=== PATIENT | female | born 1990 | race Caucasian/White ===

== ENCOUNTER → 2020-08-12 15:44 | Outpatient (CLI) | payer OTHER, BC, SELFPAY ==
--- NOTE | 2020-08-12 15:48 | DI.US.S_ITS ---
PROCEDURE: US OB >= 14 WEEKS FETUS INDICATIONS: 20 week anatomy scan OUTSIDE/PRIOR DATING DATA: Last menstrual period (LMP): 03/20/20 . LMP-based estimated date of delivery (RIAZ): 12/25/20 . First dating scan (date and location): 08/12/20, current study . Estimated date of delivery (RIAZ) from first dating scan: 12/18/20 . TECHNIQUE: Real-time scanning was performed of the fetus, with image documentation and biometric measurements. Endovaginal scanning: Not performed COMPARISON: [facility], , OB >= 14 WEEKS FETUS, 07/31/2020, 16:40. FINDINGS: General: A single living intrauterine gestation is present. Presentation: Vertex. Placenta: Placental position is posterior , without previa. Amniotic fluid index: 14.6 cm, normal range is 5-24 cm. heart rate: 144 beats per minute. Maternal cervical canal: 4.1 cm long. Normal lower limit is 2.5 cm. biometrics: Biparietal diameter: 5.1 cm, 21 weeks, three days Head circumference: 19.0 cm, 21 weeks, two days Abdominal circumference: 16.3 cm, 21 weeks, two days Femur length: 4.0 cm, 22 weeks, six days Estimated gestational age from initial scan: 20 weeks, five days. Composite gestational age from present scan: 21 weeks, five days Estimated weight and percentile: 460 g, 95th percentile Measurement variability for biometric dating: +/- 7 days from 14 weeks to 15 weeks 6 days gestation, +/- 10 days from 16 weeks to 21 weeks 6 days gestation, +/- 2 weeks from 22 weeks to 27 weeks 6 days gestation, +/- 3 weeks for 28 weeks gestation or later. weight reference: 4500 g or EFW >90/95% is considered macrosomia or large for gestational age. EFW <10% is small for gestational age. EFW 5% or less is considered intra-uterine growth restriction. Anatomic survey: Neuro: Ventricles are non-dilated at less than 10 mm. Cisterna magna is normal at 3-11 mm. Cerebellum is normal in size and morphology. Nuchal skin fold: Normal at less than 6 mm between 14-21 weeks gestational age. Face: Nose and lips, facial profile are normal. Spine: No evidence for spina bifida. Heart: 4-chambered heart is present, with normal ventricular outflow tracts. Diaphragm: Diaphragm is intact. Stomach: Left-sided stomach is present. Kidneys: No hydronephrosis. Normal is less than 5 mm in 2nd trimester, less than 7 mm in 3rd trimester. Cord: 3-vessel cord has orthotopic insertion. Bladder: Normal in size. Extremities: All 4 extremities identified. IMPRESSION: 1. Single live intrauterine with a gestational age seven days ahead of the clinically assigned gestational age. 2. Symmetric growth and normal anatomy. 3. Estimated weight at the 95th percentile. Consider follow-up to evaluate for macrosomia. Dictated by: Comfort Youssef M.D. on 08/13/2020 at 10:12 Approved by: Comfort Youssef M.D. on 08/13/2020 at 10:20
[2020-08-14 20:46] LABS: AFP Value 79.2 ng/mL (.); Gest Age on Col Date 20.7 weeks (.); Insulin Dep Diabetes No (.); OSBR Risk 1IN 7603 (.); Results Report (.); Test Results *Screen Negative* (.)
== END ==
PROVIDERS: Referring Provider Specialist; Visit Provider Specialist
DX: Z34.02 Encounter for supervision of normal first pregnancy, second trimester (principal); Z3A.20 20 weeks gestation of pregnancy
CPT/HCPCS: 36415; 76811; 82105

== ENCOUNTER → 2020-09-05 08:24 | Outpatient (CLI) | payer OTHER, BC, SELFPAY ==
[2020-09-05 10:12] LABS: Hematocrit 33.4 % (36-46); Hemoglobin 11.5 g/dL (12.0-16.0)
[2020-09-05 10:37] LABS: GTT (PREG) 1 Hour PP 50gm Dose 123 mg/dL (76-139)
== END ==
PROVIDERS: Referring Provider Specialist; Visit Provider Specialist
DX: Z34.02 Encounter for supervision of normal first pregnancy, second trimester (principal); Z3A.25 25 weeks gestation of pregnancy
CPT/HCPCS: 36415; 82950; 85014; 85018

== ENCOUNTER 2020-10-27 11:55 | Outpatient (CLI) | payer OTHER, BC, SELFPAY ==
--- NOTE | 2020-10-27 17:28 | P.TNLD_ITS ---
Visit Information Visit Information Date of evaluation: 10/27/20 Primary OB Provider: Katlin Palacios Reason for Evaluation: Yes non-stress test Comments/Additional reasons for admission: Patient is a 30-year-old pr esenting for evaluation of intermittent contractions. Otherwise uncomplicated . Vital Signs Vital Signs: 123/63 PFSH Medical History Genital herpes (~2016) PCOS (polycystic ovarian syndrome) (~01/2020) Sinus infection Surgical History [place] teeth extracted Family History Mother BRCA gene mutation positive Father Hypertension Obesity Grandmother Diabetes mellitus Stroke Breast cancer Grandfather Alcoholic Grandmother Stroke Hypertension Cancer Grandfather Cancer Hypertension Social History marital status: number of children: 0 household members: spouse lives independently: Yes caregiver/support person: No housing: house pets and animals: Yes (1 dog. (safe around babies)) education level: college occupational status: employed current occupational exposures/hazards: No christel/mosque: None special christel needs: No seatbelt use: always Smoking Status: Former smoker Tobacco: How many years used: 2 quit status: has quit before second hand exposure: No alcohol intake: former substance use type: does not use during the past year weight has: remained stable well-balanced diet: daily or most days daily servings fruits/ve-4 caffeine: Yes (currently has aversion.) Type(s) of exercise: normal ROM and activity and additional frequency: 3-4 times per week Evaluation Evaluation Baseline heart rate: 130 Variability: Moderate (11-25) monitor accelerations: Present Monitor Decelerations: Absent Category of Tracing: Reactive Status: Category l Comments: Uterine irritability, neither symptomatic more palpable. Improved with voiding and p.o. hydration. Diagnosis, Plan/Disposition Plan/Disposition Plan: Home with routine precautions. OB Disposition: home
== END 2020-10-27 13:15 | disposition home or self-care (01) ==
LOC: OB 10-28 07:38
PROVIDERS: PCP Obstetrics & Gynecology; Referring Provider Obstetrics & Gynecology; Visit Provider Obstetrics & Gynecology
DX: O47.03 False labor before 37 completed weeks of gestation, third trimester (principal); Z3A.31 31 weeks gestation of pregnancy
CPT/HCPCS: 59025; G0378; G0379

== ENCOUNTER → 2020-12-01 16:13 | Outpatient (CLI) | payer OTHER, BC, SELFPAY ==
[2020-12-02 12:21] LABS: Strep Grp B PCR NEG for Grp B Strep
== END ==
PROVIDERS: PCP Obstetrics & Gynecology; Visit Provider Obstetrics & Gynecology
DX: Z34.03 Encounter for supervision of normal first pregnancy, third trimester (principal); Z3A.36 36 weeks gestation of pregnancy
CPT/HCPCS: 87653

== ENCOUNTER 2020-12-07 13:34 | Outpatient (CLI) | payer OTHER, BC, SELFPAY ==
--- NOTE | 2020-12-07 14:47 | PM.OBTRLD ---
Visit Information Visit Information Date of evaluation: 12/07/20 Primary OB Provider: Katlin Palacios Reason for Evaluation: Yes non-stress test Comments/Additional reasons for admission: Patient is a @37+3 presenting for NST for several days of decreased movement, though stable at this new baseline. Otherwise low risk . Vital Signs Vital Signs: 120/78, HR 88 PFSH Medical History Genital herpes (~2016) PCOS (polycystic ovarian syndrome) (~01/2020) Sinus infection Surgical History [place] teeth extracted Family History Mother BRCA gene mutation positive Father Hypertension Obesity Grandmother Diabetes mellitus Stroke Breast cancer Grandfather Alcoholic Grandmother Stroke Hypertension Cancer Grandfather Cancer Hypertension Social History marital status: number of children: 0 household members: spouse lives independently: Yes caregiver/support person: No housing: house pets and animals: Yes (1 dog. (safe around babies)) education level: college occupational status: employed current occupational exposures/hazards: No christel/nondenominational: None special christel needs: No seatbelt use: always Smoking Status: Former smoker Tobacco: How many years used: 2 quit status: has quit before second hand exposure: No alcohol intake: former substance use type: does not use during the past year weight has: remained stable well-balanced diet: daily or most days daily servings fruits/ve-4 caffeine: Yes (currently has aversion.) Type(s) of exercise: normal ROM and activity and additional frequency: 3-4 times per week Review of Systems Constitutional Constitutional: Reports system reviewed and no additional complaints, except as documented Evaluation Evaluation Baseline heart rate: 120 Variability: Moderate (11-25) monitor accelerations: Present Monitor Decelerations: Absent Contraction Frequency (minutes): 3 Category of Tracing: Reactive Status: Category l Cervical dilation (cm): 0 Cervical effacement (%): 50 station: -4 Diagnosis, Plan/Disposition Plan/Disposition Plan: Home with routine precautions and scheduled follow up. OB Disposition: home
== END 2020-12-07 14:35 | disposition home or self-care (01) ==
LOC: LABOR 14:00 → OB 12-09 10:01
PROVIDERS: PCP Obstetrics & Gynecology; Referring Provider Obstetrics & Gynecology; Visit Provider Obstetrics & Gynecology
DX: O36.8130 Decreased fetal movements, third trimester, not applicable or unspecified (principal); O99.283 Endocrine, nutritional and metabolic diseases complicating pregnancy, third trimester; E28.2 Polycystic ovarian syndrome; Z3A.37 37 weeks gestation of pregnancy
CPT/HCPCS: 59025; G0378; G0379

== ENCOUNTER 2020-12-14 18:57 | Outpatient (CLI) | payer OTHER, BC, SELFPAY ==
[2020-12-14] MEDS: METOCLOPRAMIDE HCL 10 MG TABLET PO (19:56)
[2020-12-14 20:09] LABS: Add Manual Diff / Slide Review NO; Basophils Absolute Auto 100 /uL (0-100); Basophils Percent Auto 0.5 % (0-2); Eosinophils Absolute Auto 100 /uL (0-450); Eosinophils Percent Auto 0.7 % (2-4); Hemoglobin 9.3 g/dL (12.0-16.0); Lymphocytes Absolute Auto 2700 /uL (1100-4500); Lymphocytes Percent Auto 20.2 % (25-40); Mean Corpuscular Hemoglobin 22.8 PG (26-34); Mean Corpuscular Volume 71.1 fL (80-100); Monocytes Absolute Auto 1300 /uL (0-900); Monocytes Percent Auto 10.1 % (3-14); Neutrophils Absolute Auto 9000 /uL (1500-7000); Neutrophils Percent Auto 68.5 % (50-75); Platelet Count 297 X10^3/uL (150-400); Red Blood Cell Count 4.08 X10^6/uL (4.0-5.2); Red Cell Distribution Width 16.7 % (11.6-14.8); White Blood Cell Count 13.2 X10^3/uL (4.5-11.0)
[2020-12-14 20:19] LABS: Creatinine Urine Random 16.2 mg/dL; Protein (Total) Urine Random 13 mg/dL (0-12)
[2020-12-14 20:20] LABS: Aspartate Aminotransferase 23 IU/L (14-36); Blood Urea Nitrogen 8 mg/dL (7-17); Estimated Glomerular Filt Rate > 60.0 mL/min (>60); Uric Acid 3.3 mg/dL (2.5-6.2)
== END 2020-12-14 21:15 | disposition home or self-care (01) ==
LOC: LABOR 19:16 → OB 12-16 15:07
PROVIDERS: PCP Obstetrics & Gynecology; Referring Provider Obstetrics & Gynecology; Visit Provider Obstetrics & Gynecology
DX: O46.93 Antepartum hemorrhage, unspecified, third trimester (principal); O99.283 Endocrine, nutritional and metabolic diseases complicating pregnancy, third trimester; O26.893 Other specified pregnancy related conditions, third trimester; E28.2 Polycystic ovarian syndrome; R51.9 Headache, unspecified; Z3A.38 38 weeks gestation of pregnancy
CPT/HCPCS: 36415; 59025; 82570; 84156; 84450; 84550; 85025; G0378; G0379

== ENCOUNTER → 2020-12-21 09:41 | Outpatient (CLI) | payer OTHER, BC, SELFPAY ==
[2020-12-21 10:23] LABS: Add Manual Diff / Slide Review NO; Basophils Absolute Auto 100 /uL (0-100); Basophils Percent Auto 0.5 % (0-2); Eosinophils Absolute Auto 100 /uL (0-450); Eosinophils Percent Auto 0.6 % (2-4); Hematocrit 29.4 % (36-46); Hemoglobin 9.2 g/dL (12.0-16.0); Lymphocytes Absolute Auto 2200 /uL (1100-4500); Lymphocytes Percent Auto 16.7 % (25-40); Mean Corpuscular HGB Conc 31.3 % (30-36); Mean Corpuscular Hemoglobin 22.1 PG (26-34); Mean Corpuscular Volume 70.6 fL (80-100); Monocytes Absolute Auto 1100 /uL (0-900); Monocytes Percent Auto 8.6 % (3-14); Neutrophils Absolute Auto 9700 /uL (1500-7000); Neutrophils Percent Auto 73.6 % (50-75); Platelet Count 307 X10^3/uL (150-400); Red Blood Cell Count 4.17 X10^6/uL (4.0-5.2); Red Cell Distribution Width 17.1 % (11.6-14.8); White Blood Cell Count 13.2 X10^3/uL (4.5-11.0)
[2020-12-21 11:01] LABS: Aspartate Aminotransferase 26 IU/L (14-36); BUN Creatinine Ratio 23.4 (6-22); Blood Urea Nitrogen 11 mg/dL (7-17); Estimated Glomerular Filt Rate > 60.0 mL/min (>60); Uric Acid 3.9 mg/dL (2.5-6.2)
[2020-12-21 11:13] LABS: Creatinine Urine Random 196.5 mg/dL
[2020-12-21 11:20] LABS: Protein (Total) Urine Random < 5 mg/dL (0-12); Protein Creatinine Ratio Urine 0.02 GRAM/24H
== END ==
PROVIDERS: PCP Obstetrics & Gynecology; Referring Provider Obstetrics & Gynecology; Visit Provider Obstetrics & Gynecology
DX: Z34.90 Encounter for supervision of normal pregnancy, unspecified, unspecified trimester (principal)
CPT/HCPCS: 36415; 82570; 84156; 84450; 84550; 85025

== ENCOUNTER 2020-12-23 19:44 | Inpatient (IN) | payer OTHER, BC, SELFPAY ==
[2020-12-23 21:22] LABS: Add Manual Diff / Slide Review NO; Basophils Absolute Auto 100 /uL (0-100); Basophils Percent Auto 0.7 % (0-2); Eosinophils Absolute Auto 100 /uL (0-450); Eosinophils Percent Auto 0.9 % (2-4); Hematocrit 32.5 % (36-46); Lymphocytes Absolute Auto 2600 /uL (1100-4500); Lymphocytes Percent Auto 19.3 % (25-40); Mean Corpuscular HGB Conc 30.9 % (30-36); Mean Corpuscular Hemoglobin 21.6 PG (26-34); Monocytes Absolute Auto 1200 /uL (0-900); Monocytes Percent Auto 8.9 % (3-14); Neutrophils Absolute Auto 9500 /uL (1500-7000); Neutrophils Percent Auto 70.2 % (50-75); Platelet Count 360 X10^3/uL (150-400); Red Blood Cell Count 4.64 X10^6/uL (4.0-5.2); Red Cell Distribution Width 17.3 % (11.6-14.8); White Blood Cell Count 13.5 X10^3/uL (4.5-11.0)
[2020-12-23] MEDS: DINOPROSTONE VAG (CERVIDIL) 10 MG VAG (21:30)
[2020-12-23 21:46] VITALS: BP 119/80
[2020-12-23] MEDS: ZOLPIDEM 5 MG TABLET PO (22:06)
[2020-12-23 22:20] LABS: COVID19 - ADMIT (NP swab/PCR) Negative (Negative)
--- NOTE | 2020-12-24 08:29 | PM.OBHP.1 ---
OB HPI Date/Time Date of admission: 12/24/20 Date Patient Seen: 12/24/20 Time Patient Seen: 07:50 History of Present Condition Chief complaint: : 1 Para: 0 Estimated Date of Delivery: 12/24/20 Estimated Gestational Age (weeks): 40 Narrative: Lisa Tse is a 30 year old female @39+6 presenting for elective induction of labor. The patient reports feeling well this AM, with intermittent cramping but no other symptoms or concerns obstetrical or otherwise. The patient's was complicated by multiple transfers of care, and she has a history of genital herpes with no signs or symptoms of current outbreak and has been on Valtrex since 36 weeks. She has a history of metformin 500mg BID use as part of PCOS/infertility treatment, but no other significant continuous improvement director, medical, surgical, family, or social history. Indications Indication for induction OB: other (elective/upcoming non-elective partner surgery) History of Present care: good care and initiated at week # (5) Dating criteria: LMP confirmed by 1st trimester US Ultrasounds: normal mid trimester US Obstetrical complications: none Medical complications: none Preadmission Labs Blood type: O (+) positive -: Antibody screen: negative, GBS status: negative, HBsAG: negative, HIV: negative, HSV 2: positive and RPR/VDLR: negative -: Chlamydia screen: not detected and Gonorrhea screen: not detected -: Rubella: not immune and Varicella: immune Cell-free DNA: low risk, male 1 hr GTT: 123 Evaluation Evaluation Baseline heart rate: 125 Variability: Moderate (11-25) monitor accelerations: Present Monitor Decelerations: Absent Contraction Frequency (minutes): 3 Uterine Contraction Intensity: Moderate Category of Tracing: Reactive Status: Category l Cervical dilation (cm): 2 Cervical effacement (%): 75 station: -2 Laboratory results: Laboratory Tests 12/23/20 12/23/20 12/23/20 21:00 21:00 21:00 WBC 13.5 H RBC 4.64 Hgb 10.0 L Hct 32.5 L MCV 70.0 L MCH 21.6 L MCHC 30.9 RDW 17.3 H Plt Count 360 Neut % (Auto) 70.2 Lymph % (Auto) 19.3 L [place] % (Auto) 8.9 Eos % (Auto) 0.9 L Baso % (Auto) 0.7 Neut # (Auto) 9500 H Lymph # (Auto) 2600 [place] # (Auto) 1200 H Eos # (Auto) 100 Baso # (Auto) 100 SARS-CoV-2 (PCR) Negative Blood Type O Positive Antibody Screen Negative PFSH Medical History Genital herpes (~2016) PCOS (polycystic ovarian syndrome) (~01/2020) Sinus infection Surgical History [place] teeth extracted Family History Mother BRCA gene mutation positive Father Hypertension Obesity Grandmother Diabetes mellitus Stroke Breast cancer Grandfather Alcoholic Grandmother Stroke Hypertension Cancer Grandfather Cancer Hypertension Social History marital status: number of children: 0 household members: spouse lives independently: Yes caregiver/support person: No housing: house pets and animals: Yes (1 dog. (safe around babies)) education level: college occupational status: employed current occupational exposures/hazards: No christel/hinduism: None special christel needs: No seatbelt use: always Smoking Status: Never smoker Tobacco: How many years used: 2 quit status: has quit before second hand exposure: No alcohol intake: former substance use type: does not use during the past year weight has: remained stable well-balanced diet: daily or most days daily servings fruits/ve-4 caffeine: Yes (currently has aversion.) Type(s) of exercise: normal ROM and activity and additional frequency: 3-4 times per week Meds Home Medications and Allergies Home Medications Medication Instructions Recorded Confirmed Type prenat.vits,miriam,[id number] 1 tab PO DAILY 06/26/20 12/23/20 History metformin 500 mg tablet,extended 500 mg PO BID #60 tab 08/13/20 12/23/20 Rx release 24 hr Double Electric Breast Pump #1 ea 10/27/20 12/24/20 Rx valacyclovir 500 mg tablet 500 mg PO DAILY #30 tab 11/24/20 12/23/20 Rx (Valtrex) Allergies Allergy/AdvReac Type Severity Reaction Status Date / Time nickel AdvReac Intermediate Verified 06/26/20 10:11 Review of Systems Constitutional Constitutional: Reports system reviewed and no additional complaints, except as documented Cardiovascular Cardiovascular: Reports system reviewed and no additional complaints, except as documented Respiratory Respiratory: Reports system reviewed and no additional complaints, except as documented Gastrointestinal Gastrointestinal: Reports system reviewed and no additional complaints, except as documented Genitourinary Genitourinary: Reports as per HPI Musculoskeletal Musculoskeletal: Reports system reviewed and no additional complaints, except as documented Integumentary/Breasts Skin/Breast: Reports system reviewed and no additional complaints, except as documented Neurologic Neurologic: Reports system reviewed and no additional complaints, except as documented Exam Vital Signs (past 8 hours): 113/83, hr 103 Const General: cooperative, healthy appearing, comfortable and well groomed Resp Effort & Inspection: normal respiratory effort Auscultation: clear to auscultation bilaterally Cardio Rate: regular rate Rhythm: regular rhythm GI Palpation: soft and No tender External Female Exam: normal external appearance Speculum Exam - Vagina: normal appearance of the vagina Extrem General: normal to inspection Objective Labs Result Diagrams: 12/23/20 21:00 Labs: Laboratory Results - last 24 hr 12/23/20 12/23/20 12/23/20 21:00 21:00 21:00 WBC 13.5 H RBC 4.64 Hgb 10.0 L Hct 32.5 L MCV 70.0 L MCH 21.6 L MCHC 30.9 RDW 17.3 H Plt Count 360 Neut % (Auto) 70.2 Lymph % (Auto) 19.3 L [place] % (Auto) 8.9 Eos % (Auto) 0.9 L Baso % (Auto) 0.7 Neut # (Auto) 9500 H Lymph # (Auto) 2600 [place] # (Auto) 1200 H Eos # (Auto) 100 Baso # (Auto) 100 SARS-CoV-2 (PCR) Negative Blood Type O Positive Antibody Screen Negative Assessment and Plan Assessment and Plan Assessment and Plan narrative: This patient is a 30yo @39+6 presenting for scheduled induction of labor in the setting of her 's unavoidable surgery. The patient underwent cervical ripening overnight with a cervidil and will be for pitocin per protocol this AM. - cEFM, toco
[2020-12-24] MEDS: LACTATED RINGERS 1,000 ML 100 ML IV (10:09)
[2020-12-24] MEDS: OXYTOCIN PREMIX 30 UNIT/500 ML PLAST..BAG IV (10:10)
--- NOTE | 2020-12-24 13:11 | PM.OBPNLAB ---
Date/Time Date Patient Seen: 12/24/20 Time Patient Seen: 13:11 Pain Control Pain control: epidural Pelvic Exam Dilation (cm): 2 Effacement (%): 75 station: -1 Amniotic membrane status: Ruptured (AROM, clear with blood tinge) Contractions Monitor mode: External Pitocin rate (mU/min): 4 Contraction frequency (min): 2 Contraction pattern: Regular Status status: Category l Heart Rate Baseline: 125 Monitor Accelerations: Present Monitor Decelerations: Absent Monitor Variability: Moderate Assessment and Plan Assessment: induction ongoing Plan: continuous present management Comments: Continue pitocin
--- NOTE | 2020-12-24 16:51 | PM.OBPNLAB ---
Date/Time Date Patient Seen: 12/24/20 Time Patient Seen: 04:45 Pain Control Pain control: epidural Pelvic Exam Dilation (cm): 3 Effacement (%): 100 station: -1 Amniotic membrane status: Ruptured (AROM, clear with blood tinge) Contractions Monitor mode: External Pitocin rate (mU/min): 1 Contraction frequency (min): 4 Contraction pattern: Regular Contraction intensity: Moderate Status status: Category l Heart Rate Baseline: 125 Monitor Accelerations: Present Monitor Decelerations: Early Monitor Variability: Moderate Assessment and Plan Assessment: induction ongoing Plan: continuous present management
[2020-12-24] MEDS: FENT 2MCG/ML BUPIV 0.125% EPI 200 MCG/100 ML PLAST..BAG 10 MCG EPIDURAL (23:34)
--- NOTE | 2020-12-25 04:00 | PM.OBPNLAB ---
Date/Time Date Patient Seen: 12/25/20 Time Patient Seen: 04:00 Pain Control Pain control: epidural Comments: back pain Pelvic Exam Dilation (cm): 10 Effacement (%): 100 station: +2 Amniotic membrane status: Ruptured (AROM, clear with blood tinge) Contractions Monitor mode: External Contraction frequency (min): 3 Contraction pattern: Regular Contraction intensity: Moderate Status status: Category l Heart Rate Baseline: 125 Monitor Accelerations: Absent Monitor Decelerations: Absent Monitor Variability: Moderate Assessment and Plan Plan: continuous present management Comments: Patient has been pushing for 1 hr 20 minutes, is making good effort. Position difficult to assess due to caput. Continue second stage.
--- NOTE | 2020-12-25 04:55 | PM.OBPNLAB ---
Date/Time Date Patient Seen: 12/25/20 Time Patient Seen: 04:55 Pain Control Pain control: epidural Pelvic Exam Dilation (cm): 10 Effacement (%): 100 station: +3 Amniotic membrane status: Ruptured (AROM, clear with blood tinge) Contractions Monitor mode: External Pitocin rate (mU/min): 6 Contraction frequency (min): 3 Contraction pattern: Regular Contraction intensity: Moderate Status status: Category ll Heart Rate Baseline: 145 Monitor Accelerations: Absent Monitor Decelerations: Absent Monitor Variability: Moderate Assessment and Plan Assessment: active labor Plan: continuous present management Comments: Patient reports hip pain, initially declined epidural bolus but now accepts. Has been pushing for 2 hours 20 minutes with good head descent, ultrasound confirmed OA presentation, EFW 54% at last growth, 7#12 oz. Discussed option of continuing pushing vs. vacuum assisted vaginal delivery vs. section. Discussed risks to scalp, shoulder dystocia, tear w/ vacuum assisted vaginal delivery, discussed proceeding to CS if attempted and fails. Patient elects to continue pushing at this time.
--- NOTE | 2020-12-25 06:07 | PM.OBPRVD ---
Events: Labor Induction Labor & Delivery Delivery date: 12/25/20 Intrapartal Events: Prolonged Latent Phase, Prolonged 2nd Stage > 2.5 hours, Acceleration and Deceleration Cervical ripening method: per Cervidil protocol Induction method: per pitocin protocol Delivery augmentation: rupture of membranes Delivery monitor: external FHT and external uterine Route of delivery: L&D Laceration Description: Periurethral - 1st Degree and Perineal - 2nd Degree Delivery repair: vicryl Estimated blood loss (mL): 200 Anesthesia Type: Epidural Narrative: This patient presented for elective induction of labor. She was admitted and underwent cervical ripening with cervidil, before pitocin the next AM. AROM was at noon on 12/24 for clear fluid, and the patient was GBS negative. The patient had a prolonged latent phase before entering active labor. After a 3 hour 2nd stage with slow but steady progress, she was delivered of a healthy baby boy. Apgars were 9+9, shoulders delivered with ease, and there was no nuchal cord. The placenta delivered shortly thereafter and intact with 3 vessels. A small 2nd degree perineal laceration was repaired with 3-0 vicryl in the usual fashion. There were no other intrapartum or immediate complications. [place] Baby 1: gender: Male Presentation: vertex Position: Right Occiput Anterior Placenta delivery description: Spontaneous Cord Vessel Description: 3 Vessels score (1 min): 9 score (5 min): 9 Plan for aftercare: Routine care
[2020-12-25 07:42] VITALS: TEMP 36.6
[2020-12-25] MEDS: IBUPROFEN 600 MG TABLET PO ×2 (07:42→14:36)
[2020-12-25] MEDS: valACYclovir 500 MG TABLET PO (09:30)
[2020-12-25] MEDS: PRENATAL VIT,CALC/IRON/FOLIC 1 TABLET 1 TAB PO (09:31)
[2020-12-25] MEDS: LANOLIN OINT 7 GM 1 APPLIC TOP (09:31)
[2020-12-25] MEDS: DERMOPLAST SPRAY 20% 60 ML 1 SPRAY TOP (14:35)
[2020-12-25 14:36] VITALS: TEMP 36.7
[2020-12-26] MEDS: PRENATAL VIT,CALC/IRON/FOLIC 1 TABLET 1 TAB PO (08:41)
[2020-12-26] MEDS: valACYclovir 500 MG TABLET PO (08:41)
[2020-12-26] MEDS: IBUPROFEN 600 MG TABLET PO (08:41)
[2020-12-26] MEDS: ACETAMINOPHEN 325 MG TABLET 650 MG PO (08:42)
[2020-12-26 10:40] VITALS: BP 119/80; PULSE 78; RESP 18; TEMP 36.7
[2020-12-26] MEDS: MEASLES,MUMPS,RUBELLA VACC/PF 0.5 ML VIAL SUBCUT (11:30)
--- NOTE | 2020-12-26 11:35 | P.DS_ITS ---
Discharge Providers Provider Date of admission: 12/23/20 19:44 Discharge Date: 12/26/20 Primary care physician: Tami Hussein DO Consults: 12/26/20 06:15 Consult to Staging Technician Routine Comment: Discharge provider: Antonia Younger MD Summary Hospital Course Date Patient Seen: 12/26/20 Time Patient Seen: 10:15 Diagnoses: 39w6d gestation GBS negative Rh positive HSV positive PCOS Hospital Course: The pt presented for elective IOL due to her 's upcoming surgery. She received cervidil and then pitocin for IOL. AROM was performed with production of blood-tinged fluid. She progressed to complete and had a spontaneous vaginal delivery of a viable baby boy, Vaughn, with APGARs 9/9. A 2nd degree laceration was repaired. The pt tolerated delivery well. , there were no complications. At the time of discharge she was voiding, ambulating, and passing flatus without difficulty. Her pain was adequately controlled. She was with good latch with the assistance of a nipple shield. Her lochia was decreasing appropriately. She will f/u in 6 weeks for her check. Peripartum Data Delivery Method: Natural Vaginal Laceration Description: Perineal - 2nd Degree Episiotomy description: None Procedures: Spontaneous vaginal delivery complications: none [place] 1: Gender: Male Disposition of : home Discharge Diagnosis (1) Spontaneous vaginal delivery: Status: Acute (2) Genital herpes: Status: Acute (3) PCOS (polycystic ovarian syndrome): Status: Acute Status at Discharge Cognitive/behavioral status at discharge: oriented Functional status at discharge: independent ambulation Overall status at discharge: patient is progressing back to baseline Time Spent with Patient Time attestation: Total time spent providing and/or coordinating discharge services: Objective Labs Result Diagrams: 12/23/20 21:00 Exam Vital Signs (past 8 hours): - 12/26/20 10:40 Temperature 98.0 F Pulse Rate 78 Respiratory Rate 18 Blood Pressure 119/80 Discharge Plan Discharge Plan Patient Disposition: Home Discharge orders & Medications Prescriptions: New acetaminophen 325 mg Tablet 650 mg PO Q6HR PRN (Reason: Fever/Mild Pain (1-3)) Qty: 30 RF: 0 ibuprofen 600 mg Tablet 600 mg PO Q6HR PRN (Reason: Fever/Mild Pain (1-3)) Qty: 30 RF: 0 Continued metformin 500 mg tablet extended release 24 hr 500 mg PO BID Qty: 60 RF: 5 prenat.vits,miriam,vsu-[id number] Tablet 1 tab PO DAILY RF: 0 (DME) Double Electric Breast Pump See Rx Instructions .Route .MEDSUPPLY Qty: 1 RF: 0 Discontinued valacyclovir [Valtrex] 500 mg tablet 500 mg PO DAILY Qty: 30 RF: 2 Follow up/Referrals: Tami Hussein DO [Primary Care Provider] - Vinayak Murdock MD [Physician] - 02/05/21 11:00 am (To see Dr Murdock as scheduled. Check in 15 minutes prior to appointment. Call [phone] with any questions or concerns) Visit Report/Discharge Packet Stand Alone Forms: Discharge: Care Visit Report Forms: Patient Portal/API, Stroke Signs & Symptoms Discharge Data Primary Care Provider: Tami Hussein
== END 2020-12-26 12:00 | disposition home or self-care (01) | DRG 807 ==
PROVIDERS: Admitting Provider Obstetrics & Gynecology; PCP Obstetrics & Gynecology; Referring Provider Obstetrics & Gynecology; Visit Provider Obstetrics & Gynecology
DX: O98.32 Other infections with a predominantly sexual mode of transmission complicating childbirth (principal); Z37.0 Single live birth; A60.09 Herpesviral infection of other urogenital tract; O70.1 Second degree perineal laceration during delivery; Z20.822 Contact with and (suspected) exposure to COVID-19; O76 Abnormality in fetal heart rate and rhythm complicating labor and delivery; O63.1 Prolonged second stage (of labor); O99.284 Endocrine, nutritional and metabolic diseases complicating childbirth; E28.2 Polycystic ovarian syndrome; Z3A.39 39 weeks gestation of pregnancy
CPT/HCPCS: 01967; 36415; 59050; 59200; 59409; 59410; 76815; 85025; 86850; 86900; 86901; 87635; C9803; G0379; J2590